=== PATIENT | female | born 1960 | race Caucasian/White ===

== ENCOUNTER 2019-10-08 13:18 | Emergency (ER) | payer BC ==
[2019-10-08 15:31] LABS: Influenza A Molecular Negative (Negative); Influenza B Molecular Negative (Negative)
--- NOTE | 2019-10-08 16:20 | UC ---
Throat Pain/Nasal Abimael HPI - HPI Summary HPI Summary: 59-year-old woman comes in today history of influenza-like symptoms. She's got minimal rhinorrhea she does have a sore throat cough chest congestion with yellow sputum. Also been having some nausea and has vomited. She did try one of her home pain medicines which helped some of the symptoms however she was afraid that she would vomit if she kept taking it so she cannot take anymore. Also does have body aches and fatigue. - History of Current Complaint Chief Complaint: UCGeneralIllness Stated Complaint: EAR PAIN SORE THROAT BODYACHES Time Seen by Provider: 10/08/19 15:57 Pain Intensity: 10 - Allergies/Home Medications Allergies/Adverse Reactions: Allergies Allergy/AdvReac Type Severity Reaction Status Date / Time Bees Allergy Swelling Uncoded 10/08/19 13:37 and itching Home Medications: Home Medications Hydrocodone/Acetaminophen [Hydrocodone-Acetamin 5-325 mg] 1 tab PO DAILY [History Confirmed 10/08/19] Losartan Potassium 1 tab PO DAILY 10/08/19 [History Confirmed 10/08/19] Venlafaxine EXT RELEASE CAP* [Effexor Xr CAP*] 1 cap PO DAILY 10/08/19 [History Confirmed 10/08/19] PMH/Surg Hx/FS Hx/Imm Hx Previously Healthy: Yes Endocrine History: Dyslipidemia Cardiovascular History: Hypertension Respiratory History: Asthma Other History Of: Negative For: Anticoagulant Therapy - Surgical History Surgical History: Yes Surgery Procedure, Year, and Place: T&A. appendectomy. hysterectomy - Family History Known Family History: Positive: Cardiac Disease Family History: NON CONTRIBUTORY - Social History Alcohol Use: Occasionally Alcohol Amount: 3-4 beers Substance Use Type: Prescribed Smoking Status (MU): Former Smoker Type: Cigarettes Amount Used/How Often: 1/2 PPD X 20 YRS When Did the Patient Quit Smoking/Using Tobacco: 10 YRS AGO - Immunization History Most Recent Influenza Vaccination: never Most Recent Tetanus Shot: UTD Most Recent Pneumonia Vaccination: not yet Review of Systems All Other Systems Reviewed And Are Negative: Yes Constitutional: Positive: Fatigue, Other - SEE HPI Skin: Positive: Negative Eyes: Positive: Negative ENT: Positive: Sore Throat, Nasal Discharge Respiratory: Positive: Cough, Other - SEE HPI Cardiovascular: Positive: Negative Gastrointestinal: Positive: Vomiting, Nausea Motor: Positive: Negative Neurovascular: Positive: Negative Musculoskeletal: Positive: Negative Neurological: Positive: Negative Psychological: Positive: Negative Is Patient Immunocompromised?: No Physical Exam Triage Information Reviewed: Yes Appearance: No Pain Distress, Well-Nourished, Ill-Appearing - MILD Vital Signs: Initial Vital Signs Temp 98 F 10/08/19 13:34 Pulse 84 10/08/19 13:34 Resp 18 10/08/19 13:34 BP 125/88 10/08/19 13:34 Pulse Ox 100 10/08/19 13:34 Vital Signs Reviewed: Yes Eye Exam: Normal Eyes: Positive: Conjunctiva Clear ENT: Positive: Pharyngeal erythema, Nasal congestion, Nasal drainage, TMs normal Neck: Positive: Supple Respiratory: Positive: Lungs clear, Normal breath sounds, No respiratory distress Cardiovascular: Positive: RRR Musculoskeletal: Positive: Strength Intact, ROM Intact Neurological: Positive: Alert, Muscle Tone Normal Psychological: Positive: Age Appropriate Behavior Skin Exam: Normal Throat Pain/Nasal Course/Dx - Course Course Of Treatment: DISCUSSED VIRAL VERSES BACTERIAL INFECTIONS AND THE ROLE OF ANTIBIOTICS. THE PATIENT PREFERS TO BE ON ANTIBIOTICS AT THIS TIME. - Differential Dx/Diagnosis Provider Diagnosis: Influenza-like illness, Bronchitis, Nausea & vomiting Discharge ED - Sign-Out/Discharge Documenting (check all that apply): Patient Departure All imaging exams completed and their final reports reviewed: No Studies - Discharge Plan Condition: Stable Disposition: HOME Prescriptions: Azithromyxin SHAREE (NF) [Z-Sharee (Zithromax) 250 mg tabs #6] 2 tab PO .TODAY, THEN 1 DAILY #6 tab Ondansetron ODT TAB* [Zofran 4 MG Odt TAB*] 4 mg PO Q6H PRN #10 tab.odt PRN Reason: Nausea Patient Education Materials: Acute Bronchitis (ED), Acute Nausea and Vomiting ( ED) Forms: *Work Release Referrals: Pillo Galindo MD [Primary Care Provider] - Additional Instructions: FOLLOW UP WITH YOUR DOCTOR IF NOT COMPLETELY IMPROVED. GET REEVALUATED SOONER IF NOT IMPROVED OR WORSE OR ANY QUESTIONS OR CONCERNS. - Billing Disposition and Condition Condition: STABLE Disposition: Home
[2019-10-08 16:30] VITALS: BP 125/85
== END 2019-10-08 16:30 | disposition home or self-care (01) ==
LOC: UCEAST 13:18
DX: J40 Bronchitis, not specified as acute or chronic (principal); R11.2 Nausea with vomiting, unspecified; J34.89 Other specified disorders of nose and nasal sinuses; J02.9 Acute pharyngitis, unspecified; R05 Cough; R09.89 Other specified symptoms and signs involving the circulatory and respiratory systems; R53.83 Other fatigue; I10 Essential (primary) hypertension; J45.909 Unspecified asthma, uncomplicated; Z79.899 Other long term (current) drug therapy; Z87.890 Personal history of sex reassignment; Z91.030 Bee allergy status
CPT/HCPCS: 87651; 99212; G0463

== ENCOUNTER 2019-10-10 05:32 | Day surgery (SDC) | payer BC ==
[~2019-10-10 05:32] MED LIST: Buffered Lidocaine 1% SYRIN* 1 ML/SYRINGE INTRADERM ONE
[2019-10-10] MEDS ORDERED: Famotidine IV* 10 MG/ML 2 ML (20 mg) IV ONE (06:00)
[2019-10-10] MEDS ORDERED: Gabapentin CAP(*) 300 MG PO ONE (06:00)
[2019-10-10] MEDS ORDERED: Lactated Ringers 1000 ML Bag* 1,000 ML IV SCH (06:00)
[2019-10-10] MEDS ORDERED: Acetaminophen TAB* 325 MG PO ONE (06:00)
[2019-10-10] MEDS ORDERED: Gabapentin CAP(*) 300 MG ONE (06:15)
[2019-10-10] MEDS ORDERED: Acetaminophen TAB* 325 MG ONE (06:15)
[2019-10-10] MEDS ORDERED: ceFAZolin 2 GM PREMIX in ORs 2 GM/50 ML BAG ONE (06:15)
[2019-10-10] MEDS ORDERED: Famotidine IV* 10 MG/ML 2 ML (20 mg) ONE (06:16)
[2019-10-10] MEDS ORDERED: Buffered Lidocaine 1% SYRIN* 1 ML/SYRINGE INTRADERM ONE (06:16)
[2019-10-10] MEDS ORDERED: Bupivacaine 0.5%* 50 ML MDV VIAL ONE (07:08)
[2019-10-10] MEDS ORDERED: fentaNYL* 50 MCG/ML 2 ML VIAL (100 MCG VIAL) ONE ×3 (07:22→09:01)
[2019-10-10] MEDS ORDERED: Midazolam* 1 MG/ML 2 ML VIAL (2 MG) ONE (07:23)
[2019-10-10] MEDS ORDERED: Lidocaine 2% PF * 5 ML VIAL ONE (07:31)
[2019-10-10] MEDS ORDERED: Ketorolac INJ* 30 MG/ML 1 ML VIAL ONE (07:32)
[2019-10-10] MEDS ORDERED: Propofol* 10 MG/ML 20 ML BTL ONE (07:32)
[2019-10-10] MEDS ORDERED: Dexamethasone IV* 4 MG/ML 1 ML (4 MG) ONE (07:32)
[2019-10-10] MEDS ORDERED: Ondansetron INJ* 2 MG/ML VIAL ONE (07:32)
[2019-10-10] MEDS ORDERED: Lidocaine 1% INJ* 10 MG/ML 30 ML SDV ONE (07:39)
[2019-10-10] MEDS ORDERED: HYDROcodone/ACETAMIN 5-325 MG* 1 TAB PO PRN ×2 (08:03)
[2019-10-10] MEDS ORDERED: Naloxone* 0.4 MG/ML 1 ML VIAL IV PRN (08:03)
[2019-10-10] MEDS ORDERED: DiMENhydriNATE IV* 50 MG/ML VIAL IV PUSH PRN (08:03)
[2019-10-10] MEDS ORDERED: Scopolamine 1.5 mg* PATCH TRANSDERM PRN (08:03)
[2019-10-10] MEDS ORDERED: diPHENhydraMINE IV* 50 MG/ML 1 ml VIAL (BENADRYL) IV PRN (08:03)
[2019-10-10] MEDS ORDERED: Ondansetron INJ* 2 MG/ML VIAL IV PRN (08:03)
[2019-10-10] MEDS ORDERED: Levalbuterol 0.63MG/3ML NEB* UNIT OF USE INH PRN (08:03)
--- NOTE | 2019-10-10 08:55 | OP ---
Operative Report - Blank - Operative Report Date of Operation: 10/10/19 Note: PATIENT: Judy Ryan DATE OF : 1960 DATE OF SURGERY: 10/10/2019 SURGEON: Jose Barrios MD SLAB LIFTING ENGINEER: SHAMAR Caban, whos assistance was necessary for positioning, retraction, help with instrumentation, and closure. ANESTHESIOLOGIST: Dr. Felipe PREOPERATIVE DIAGNOSIS: Right foot hallux valgus deformity POSTOPERATIVE DIAGNOSIS: Right foot hallux valgus deformity OPERATION: Right foot hallux valgus correction with distal soft tissue procedure , medial eminence resection, and proximal suture button fixation. ANESTHESIA: MAC IMPLANTS: Arthrex mini tightrope TOURNIQUET TIME: Less than one hour with an ankle Esmarch tourniquet SPECIMENS: None ESTIMATED BLOOD LOSS: Minimal COMPLICATIONS: none STATUS: Stable from the operating room to the recovery room and then home. INDICATIONS FOR PROCEDURE: Judy has had persistent right bunion pain despite non-op treatment measures. Both operative and non-operative treatment alternatives were reviewed. Further, the nature and risks of surgery were reviewed in careful detail, in the office as well as the pre-operative holding area. Our discussions regarding the risks of surgery included, but were not limited to, infection, wound problems, nerve injury, neuroma, RSD, persistent symptoms, blood clot, recurrence of the hallux valgus deformity, hallux varus deformity, imperfect reduction, metatarsal fracture, need for further surgery, failure of the surgery, and even the remote chance of catastrophic complication. DESCRIPTION OF PROCEDURE: The patient was seen in the preoperative holding unit and informed written consent was obtained. The appropriate extremity was marked. The patient was then brought to the operating room and carefully positioned on the operating room table. Anesthesia was induced. All bony prominences were padded with great care. A chlorhexidine based pre-scrub was performed followed by a chloraprep prep and drape in standard sterile fashion. A surgical safety pause was then conducted in which we confirmed the appropriate patient, extremity, planned procedure, availability of equipment, indication and administration of prophylactic antibiotics, and DVT prophylaxis in the form of a compression boot on the non-surgical extremity. I began with Esmarch exsanguination of the limb and placement of the ankle Esmarch tourniquet. An approximately 3cm longitudinal dorsal incision was made in the first webspace. Blunt dissection was utilized to expose the structures of the lateral first MTP joint. With a scalpel I then sharply released the adductor tendon, intermetatarsal ligament, metatarsal-sesamoid ligament, and lateral joint capsule. After this, the hallux came readily over into varus with minimal pressure. I then made an approximately 3cm longitudinal incision over the medial aspect of the first MTP joint, centered at the first MTP joint. Dissection was carried down to the capsular layer. The dorsomedial cutaneous nerve was protected throughout. The capsule was opened in line with the skin incision. I then used an oscillating saw to perform an exostectomy of the medial eminence of the first MTP head flush with the metaphyseal flare proximally. I started the osteotomy 1mm medial to the sagittal sulcus. The dorsomedial prominence was then contoured with a rongeur. I then simulated an imbrication of the capsule, which provided excellent visual correction of the hallux valgus deformity and intermetatarsal angle. I used fluoroscopy to confirm this and that the sesamoids were appropriately positioned under the first metatarsal head. As such, I then formally imbricated and repaired the medial first MTP joint capsule utilizing several advancing horizontal mattress sutures with #1 Vicryl. I then made an approximately 1 cm incision at the lateral border of the second metatarsal. The lateral cortex of the second metatarsal was exposed. The 1.1mm guidewire from the Arthrex mini tightrope set was passed from the lateral second metatarsal, through the second metatarsal, and through the first metatarsal to exit medially. I felt four cortices while advancing the guidewire. Then, by pulling the guidewire out medially, I shuttled a passing suture through the second and first metatarsals. I then looped the suture of the Arthrex mini tightrope through the passing suture and pulled this out laterally through the second metatarsal. This acted to shuttle the mini tightrope through the first and second metatarsals. The buttons were placed flush on the medial aspect of the first metatarsal and lateral aspect of the second metatarsal, and the suture was tied over the button laterally at the second metatarsal. Fluoroscopy was used to confirm that this maintained my intermetatarsal correction. Final fluoroscopic images were then obtained. The wounds were copiously irrigated and meticulously closed in layers utilizing 3-0 Monocryl and 3-0 nylon. A sterile dressing was then applied, along with a bunion bolster. The patient was then awakened from anesthesia and transferred to the recovery room in stable condition. There were no complications. All needle and sponge counts were correct at the end of the case. ATTESTATION: I attest I was present and scrubbed and performed the critical portions of the procedure myself. POSTOPERATIVE PLAN: The patient will remain heel weightbearing in a postop shoe for anticipated duration of 6 weeks. Followup will be in 2 weeks for likely suture removal, Steri-Strip application, and reapplication of the bunion bolster.
[2019-10-10] MEDS ORDERED: HYDROcodone/ACETAMIN 5-325 MG* 1 TAB ONE (09:01)
[2019-10-10] MEDS: fentaNYL* 50 MCG/ML 2 ML VIAL (100 MCG VIAL) IV PRN ×2 (09:02→09:19)
[2019-10-10 13:41] VITALS: BP 170/107
[2019-10-13] MEDS ORDERED: Scopolamine PATCH Remove* 1 NOTE MISC PATCH OFF ONE (08:04)
== END 2019-10-10 09:45 | disposition home or self-care (01) ==
LOC: OR 05:32
PROVIDERS: ATTEND Orthopaedic Surgery
DX: M20.11 Hallux valgus (acquired), right foot (principal); I10 Essential (primary) hypertension; J45.909 Unspecified asthma, uncomplicated; G89.29 Other chronic pain; Z79.891 Long term (current) use of opiate analgesic; Z68.30 Body mass index [BMI] 30.0-30.9, adult; F32.9 Major depressive disorder, single episode, unspecified
CPT/HCPCS: 76000; A9270-GY; C1713; J0690; J1100; J1885; J2250; J2405; J2704; J3010; J3490

== ENCOUNTER 2023-12-24 05:38 | Inpatient (IN) ==
[2023-12-24] MEDS ORDERED: Atropine 0.1 MG/ML 10 ml SYR (1 mg) ONE (05:45)
[2023-12-24 06:10] LABS: ABS Basophils 0.1 10^3/uL (0.0-0.1); ABS Eosinophils 0.2 10^3/uL (0.0-0.5); ABS Lymphocytes 1.9 10^3/uL (1.0-4.8); ABS Monocytes 0.4 10^3/uL (0.0-0.9); ABS Neutrophils 6.5 10^3/uL (1.5-7.6); ABS Nucleated RBC 0.01 10^3/ul; Eosinophil % 1.9 %; Hematocrit 39.2 % (35-45); Hemoglobin 13.9 g/dL (11.5-14.3); Lymphocyte % 21.1 %; Mean Corpuscular Hemoglobin 30.1 pg (27-33); Mean Corpuscular Hgb Conc 35.6 g/dL (31-36); Mean Corpuscular Volume 84.6 fL (80-97); Mean Platelet Volume 7.2 fL (7.5-11.2); Nucleated Red Blood Cells % 0.1 %/100WBC (0.0-0.8); Platelet Count 320 10^3/uL (150-450); Red Blood Count 4.63 10^6/uL (3.63-4.92); Red Cell Distribution Width 12.8 % (12-17); White Blood Count 9.1 10^3/uL (3.8-11.8)
[2023-12-24 06:21] LABS: INR 1.1 (0.83-1.13)
[2023-12-24 06:36] LABS: High Sens Troponin Baseline 6 pg/mL (<15)
[2023-12-24] MEDS: Acetaminophen IV 1 GM/100ML 1,000 MG/100 ML BAG IV ONE (06:57)
[2023-12-24 07:10] LABS: ALT 12 U/L (7-52); Albumin 4.5 g/dL (3.2-5.2); Albumin/Globulin Ratio 1.8 (1-3); Alkaline Phosphatase 70 U/L (35-149); Blood Urea Nitrogen 15 mg/dL (6-24); CO2 Carbon Dioxide 27 mmol/L (22-32); Calcium 9.7 mg/dL (8.6-10.3); Chloride 99 mmol/L (101-111); Creatinine, Serum 0.88 mg/dL (0.51-0.95); Globulin 2.5 g/dL (2-4); Glucose 100 mg/dL (70-100); Lipase 22 U/L (11.0-82.0); Magnesium 1.9 mg/dL (1.9-2.7); Sodium 137 mmol/L (135-145); Total Bilirubin 0.6 mg/dL (0.2-1.0); eGFR CKD-EPI 73.3 (>60)
[2023-12-24 07:23] LABS: TSH Ultra Thyroid Stim Horm 1.81 mcIU/mL (0.34-5.60)
[2023-12-24 07:50] LABS: Anion Gap 11 mmol/L (2-16)
[2023-12-24 08:35] LABS: Potassium Redraw 3.2 mmol/L (3.5-5.0)
[2023-12-24] MEDS: Iohexol 350 (CONTRAST) 500 ML MDV IV ONE (08:55)
[2023-12-24] MEDS: KCL 20 MEQ/100 ML IVPREMIX 20 MEQ/100 ML BAG IV SCH (09:40)
[2023-12-24] MEDS: Ondansetron 4 mg VIAL 2 MG/ML 2 ml VIAL IV ONE (09:59)
[2023-12-24] MEDS: Potassium Chloride LIQUID 20 MEQ/15 ML LIQUID PO ONE (10:40)
[2023-12-24 12:52] LABS: Urine Benzodiazepine Screen None Detected (None Detect); Urine Cannabinoids Screen Presumptive Positive (None Detect); Urine Opiates Screen None Detected (None Detect)
[2023-12-24] MEDS: Potassium Chlor 20 meq TAB.ER PO ONE (19:24)
[2023-12-25 00:41] LABS: Calcium 8.7 mg/dL (8.6-10.3); Creatinine, Serum 1.06 mg/dL (0.51-0.95); Magnesium 1.8 mg/dL (1.9-2.7); Potassium 4.1 mmol/L (3.5-5.0); eGFR CKD-EPI 58.7 (>60)
[2023-12-25 05:38] LABS: ABS Basophils 0.1 10^3/uL (0.0-0.1); ABS Eosinophils 0.1 10^3/uL (0.0-0.5); ABS Lymphocytes 1.7 10^3/uL (1.0-4.8); ABS Monocytes 0.4 10^3/uL (0.0-0.9); ABS Neutrophils 3.6 10^3/uL (1.5-7.6); Eosinophil % 2.3 %; Hematocrit 37.1 % (35-45); Hemoglobin 13.1 g/dL (11.5-14.3); Lymphocyte % 28.9 %; Mean Corpuscular Hgb Conc 35.3 g/dL (31-36); Mean Corpuscular Volume 84.8 fL (80-97); Mean Platelet Volume 7.2 fL (7.5-11.2); Platelet Count 297 10^3/uL (150-450); Red Blood Count 4.37 10^6/uL (3.63-4.92); Red Cell Distribution Width 12.9 % (12-17)
[2023-12-25 07:58] LABS: Calcium 8.9 mg/dL (8.6-10.3); Creatinine, Serum 0.92 mg/dL (0.51-0.95); Magnesium 1.9 mg/dL (1.9-2.7); Potassium 3.7 mmol/L (3.5-5.0); eGFR CKD-EPI 69.5 (>60)
[2023-12-25] MEDS ORDERED: ceFAZolin SYR FLUSH 1 GM/10 ML for pocket flush (cardiology) FLUSH ONE (09:42)
[2023-12-25] MEDS ORDERED: ceFAZolin 2 GM PREMIX 2 GM/100 ML BAG IVPB ONE (10:00)
[2023-12-25] MEDS: ceFAZolin 2 GM PREMIX 2 GM/100 ML BAG IVPB ONE (15:13)
[2023-12-25] MEDS ORDERED: fentaNYL 100 mcg/2 ml 50 MCG/ML VIAL ONE (16:21)
[2023-12-25] MEDS ORDERED: Midazolam 5 mg/5 ml VIAL 1 mg/ml 5 ml VIAL (5 mg) ONE (16:21)
[2023-12-25] MEDS ORDERED: Lidocaine 1% VIAL 10 MG/ML 30 ML VIAL ONE (16:21)
[2023-12-25] MEDS: fentaNYL 100 mcg/2 ml 50 MCG/ML VIAL IV SLOW PU ONE (17:32)
[2023-12-25] MEDS: Midazolam 10 mg/10 ml VIAL 1 mg/ml 10 ml VIAL (10 mg) IV SLOW PU ONE (17:32)
[2023-12-25] MEDS: ceFAZolin SYR FLUSH 1 GM/10 ML for pocket flush (cardiology) FLUSH ONE (17:32)
[2023-12-25] MEDS: ceFAZolin VIAL 1 GM in NS 0.9% 50 ML 50 ML IVPB SCH (23:10)
[2023-12-26 05:32] LABS: ABS Basophils 0.1 10^3/uL (0.0-0.1); ABS Eosinophils 0.2 10^3/uL (0.0-0.5); ABS Lymphocytes 1.7 10^3/uL (1.0-4.8); ABS Monocytes 0.4 10^3/uL (0.0-0.9); ABS Neutrophils 4.2 10^3/uL (1.5-7.6); Eosinophil % 2.4 %; Hematocrit 39.5 % (35-45); Hemoglobin 13.9 g/dL (11.5-14.3); Lymphocyte % 26.2 %; Mean Corpuscular Hemoglobin 29.7 pg (27-33); Mean Corpuscular Hgb Conc 35.1 g/dL (31-36); Mean Corpuscular Volume 84.6 fL (80-97); Mean Platelet Volume 7.1 fL (7.5-11.2); Nucleated Red Blood Cells % 0.1 %/100WBC (0.0-0.8); Platelet Count 270 10^3/uL (150-450); Red Blood Count 4.67 10^6/uL (3.63-4.92); Red Cell Distribution Width 12.9 % (12-17); White Blood Count 6.6 10^3/uL (3.8-11.8)
[2023-12-26 05:59] LABS: Calcium 9.4 mg/dL (8.6-10.3); Creatinine, Serum 0.88 mg/dL (0.51-0.95); Magnesium 1.9 mg/dL (1.9-2.7); Phosphorus 4.4 mg/dL (2.5-5.0); Potassium 3.9 mmol/L (3.5-5.0); eGFR CKD-EPI 73.3 (>60)
[2023-12-26] MEDS: NS 0.9% 1000 ml BAG 1,000 ML IV SCH (07:22)
[2023-12-26] MEDS: hydrALAZINE 20 mg/ml 1 ML Vial IV IV SLOW PU ONE (18:52)
[2023-12-26] MEDS: Ondansetron 4 mg VIAL 2 MG/ML 2 ml VIAL IV PRN (22:02)
[2023-12-26] MEDS: Enoxaparin 40 MG/0.4 ML SYR SUBCUT SCH (22:03)
[2023-12-27 08:19] VITALS: BP 145/99
== END 2023-12-27 12:23 | disposition home or self-care (01) | DRG 171 ==
LOC: ED 05:38 → EDHOLD 05:38 → ICU 15:33
PROVIDERS: ADMIT Internal Medicine Pulmonary Disease; ATTEND Internal Medicine Pulmonary Disease

== ENCOUNTER 2024-01-09 12:24 | Observation (INO) ==
[2024-01-09 13:21] LABS: Hematocrit 38.3 % (35-45); Hemoglobin 13.5 g/dL (11.5-14.3); Mean Corpuscular Hemoglobin 29.9 pg (27-33); Mean Corpuscular Hgb Conc 35.4 g/dL (31-36); Mean Corpuscular Volume 84.6 fL (80-97); Red Blood Count 4.52 10^6/uL (3.63-4.92); Red Cell Distribution Width 12.7 % (12-17); White Blood Count 6.4 10^3/uL (3.8-11.8)
[2024-01-09] MEDS: Dexamethasone IV 4 MG/ML VIAL 1 ml VIAL IV SLOW PU ONE (13:25)
[2024-01-09] MEDS: Prochlorperazine 5 mg/ml 2 ml VIAL (10 mg) IV ONE (13:26)
[2024-01-09 13:42] LABS: ABS Basophils 0.1 10^3/uL (0.0-0.1); ABS Eosinophils 0.1 10^3/uL (0.0-0.5); ABS Lymphocytes 1.9 10^3/uL (1.0-4.8); ABS Monocytes 0.4 10^3/uL (0.0-0.9); ABS Neutrophils 3.8 10^3/uL (1.5-7.6); ABS Nucleated RBC 0.03 10^3/ul; Lymphocyte % 30.5 %; Nucleated Red Blood Cells % 0.4 %/100WBC (0.0-0.8); Platelet Count Platelets clumped. 10^3/uL (150-450)
[2024-01-09 13:47] LABS: INR 0.89 (0.83-1.13)
[2024-01-09 13:55] LABS: ALT 20 U/L (7-52); Albumin 4.9 g/dL (3.2-5.2); Albumin/Globulin Ratio 1.8 (1-3); Alkaline Phosphatase 78 U/L (35-149); Anion Gap 11 mmol/L (2-16); Blood Urea Nitrogen 14 mg/dL (6-24); CO2 Carbon Dioxide 26 mmol/L (22-32); Calcium 10.2 mg/dL (8.6-10.3); Chloride 98 mmol/L (101-111); Creatinine, Serum 0.75 mg/dL (0.51-0.95); Globulin 2.8 g/dL (2-4); Glucose 97 mg/dL (70-100); Sodium 135 mmol/L (135-145); Total Bilirubin 0.4 mg/dL (0.2-1.0); Total Protein 7.7 g/dL (6.4-8.9); eGFR CKD-EPI 88.8 (>60)
[2024-01-09 14:24] LABS: High Sens Troponin Baseline 3 pg/mL (<15)
[2024-01-09 14:40] LABS: High Sensitivity Troponin 1 Hr 3 pg/mL (<15)
[2024-01-09] MEDS: Iohexol 350 (CONTRAST) 500 ML MDV IV ONE (14:56)
[2024-01-09] MEDS: Lactated Ringers 1000 ml BAG 1,000 ML IV ONE (14:59)
[2024-01-09 15:04] LABS: Acetaminophen < 15 mcg/mL
[2024-01-09] MEDS: hydrALAZINE 20 mg/ml 1 ML Vial IV IV SLOW PU ONE ×2 (16:29→17:49)
[2024-01-09 16:52] LABS: Urine Appearance Clear; Urine Bilirubin Negative (Negative); Urine Blood Negative (Negative); Urine Color Colorless; Urine Glucose Negative (Negative); Urine Ketones Negative (Negative); Urine Nitrite Negative (Negative); Urine Protein Negative (Negative); Urine Specific Gravity 1.021 (1.002-1.030); Urine Urobilinogen Negative (Negative)
[2024-01-09] MEDS ORDERED: Ondansetron 4 mg VIAL 2 MG/ML 2 ml VIAL IV PRN (21:43)
[2024-01-09] MEDS: Enoxaparin 40 MG/0.4 ML SYR SUBCUT SCH (21:58)
[2024-01-10 06:22] LABS: ABS Lymphocytes 1.2 10^3/uL (1.0-4.8); ABS Monocytes 0.2 10^3/uL (0.0-0.9); ABS Neutrophils 6.3 10^3/uL (1.5-7.6); ABS Nucleated RBC 0.01 10^3/ul; Hematocrit 39.1 % (35-45); Hemoglobin 13.6 g/dL (11.5-14.3); Lymphocyte % 15.3 %; Mean Corpuscular Hemoglobin 29.2 pg (27-33); Mean Corpuscular Hgb Conc 34.9 g/dL (31-36); Mean Corpuscular Volume 83.9 fL (80-97); Mean Platelet Volume 6.9 fL (7.5-11.2); Nucleated Red Blood Cells % 0.1 %/100WBC (0.0-0.8); Platelet Count 392 10^3/uL (150-450); Red Blood Count 4.66 10^6/uL (3.63-4.92); Red Cell Distribution Width 12.7 % (12-17); White Blood Count 7.7 10^3/uL (3.8-11.8)
[2024-01-10 06:39] LABS: Creatinine, Serum 0.84 mg/dL (0.51-0.95); Potassium 3.8 mmol/L (3.5-5.0); eGFR CKD-EPI 77.6 (>60)
[2024-01-10 07:49] VITALS: BP 140/101
[2024-01-10] MEDS: Potassium Chlor 20 meq TAB.ER PO ONE (09:55)
== END 2024-01-10 11:57 | disposition home or self-care (01) ==
LOC: ED 12:24 → EDHOLD 12:24 → SUATTDRO 21:40 → EDHOLD 01-10 11:56
PROVIDERS: ADMIT Internal Medicine; ATTEND Internal Medicine